=== PATIENT | female | born 1995 | race Caucasian/White ===

== ENCOUNTER → 2020-12-05 | Outpatient (CLI) | payer OTHER ==
[~2020-12-05] MED LIST: ISOVUE-300 61% 50ML VIAL As Ordered ONE; PROHANCE 279.3MG/ML 5ML VIAL As Ordered ONE
--- NOTE | 2020-12-05 09:31 | REP ---
INDICATION: IMPINGEMENT SYNDROME LT SHOULDER. COMPARISON: None. TECHNIQUE: Coronal oblique T1, T2 fat sat, sagittal oblique T2 fat sat, axial T2 fat sat, gradient echo. Post arthrogram T1 fat sat and T2 fat sat in multiple planes. FINDINGS: Rotator cuff: No evidence of tear. There is mild supraspinatus tendinopathy/tendinitis. Acromioclavicular joint: There are mild hypertrophic degenerative changes of the acromioclavicular joint. Acromion: Type 1 Biceps Tendon: In bicipital groove, no tenosynovitis. Hill Sach's deformity: None. Deltoid muscle: No abnormal signal. Biceps labral complex: Intact. Labrum: No tear. Cartilage: No defects. Bone marrow: There is mild subchondral cystic change in marrow edema in the distal end of the clavicle.. Joint fluid: No effusion. IMPRESSION: Mild supraspinatus tendinopathy/tendinitis. Mild hypertrophic degenerative changes acromioclavicular joint, with a type 1 acromion. No evidence of rotator cuff tear or labral tear. <Electronically signed by Glenroy Chew > 12/05/20 [id number]
--- NOTE | 2020-12-05 16:00 | REP ---
INDICATION: IMPINGEMENT SYNDROME LT SHOULDER COMPARISON: None. TECHNIQUE: The procedure was performed under the direct supervision of Dr. Carolina. The benefits and risks including but not limited to pain, infection, bleeding and anaphylaxis were explained to the patient and informed consent was obtained. The left glenohumeral joint space was localized using fluoroscopic guidance. The skin was prepped and draped in a sterile fashion. 1% lidocaine was used as a local anesthetic. Using fluoroscopic guidance a 22 gauge spinal needle was inserted and advanced into the joint. 0.5 ml of Isovue-300 was injected to verify placement. 11 ml of a solution containing 20 ml of sterile saline and 0.15 ml of ProHance was injected into the joint. The needle was removed and the patient was taken to MRI for postprocedural imaging. The patient tolerated the procedure well and there were no immediate complications. Less than 6 seconds of fluoro time was utilized for this procedure. FINDINGS: None IMPRESSION: Fluoro guidance for left shoulder MRI arthrogram injection. <Electronically signed by Dylon Verdugo > 12/05/20 [id number] <Electronically signed by Abdulaziz Carolina > 12/05/20 [id number]
== END ==
LOC: M RADPRO 06:36
PROVIDERS: ATTEND Orthopaedic Surgery
DX: M75.22 Bicipital tendinitis, left shoulder (principal); M75.42 Impingement syndrome of left shoulder
CPT/HCPCS: 23350; 73223; 77002; A9576; Q9967

== ENCOUNTER 2021-05-25 15:38 | Emergency (ER) | payer OTHER ==
[~2021-05-25] VITALS: Ht 170.2 cm; Wt 68.2 kg
[2021-05-25] MEDS ORDERED: MILI1TAB PO (15:47)
[2021-05-25] MEDS ORDERED: NORCO 5/325MG TABLET (BULK FOR ED) PO ONE (18:50)
[2021-05-25] MEDS ORDERED: HYDR-3713 PO (18:52)
[2021-05-25 19:00] VITALS: BP 133/69
[2021-05-27] MEDS ORDERED: PERCOCET PO (15:39)
== END 2021-05-25 19:08 | disposition home or self-care (01) ==
LOC: M ED 15:38
DX: S92.101A Unspecified fracture of right talus, initial encounter for closed fracture (principal); V00.311A Fall from snowboard, initial encounter; Y92.838 Other recreation area as the place of occurrence of the external cause; Y93.23 Activity, snow (alpine) (downhill) skiing, snowboarding, sledding, tobogganing and snow tubing; Z79.3 Long term (current) use of hormonal contraceptives